=== PATIENT | male | born 1980 | race Caucasian/White ===

== ENCOUNTER 2018-05-13 21:40 | Emergency (ER) | payer OTHER ==
[~2018-05-13] VITALS: Ht 180.3 cm; Wt 84.7 kg
[2018-05-14] MEDS ORDERED: NORCO 10/3251 TABLET PO (00:11)
[2018-05-14] MEDS ORDERED: FLEXERIL10 MG PO (00:11)
[2018-05-14] MEDS ORDERED: NAPROSYN500 MG PO (00:11)
[2018-05-14 00:48] VITALS: BP 125/82
== END 2018-05-14 00:49 | disposition home or self-care (01) ==
LOC: EME 21:40
DX: M51.16 Intervertebral disc disorders with radiculopathy, lumbar region (principal); F17.200 Nicotine dependence, unspecified, uncomplicated
CPT/HCPCS: 99281; 99284